=== PATIENT | female | born 1935 | race Asian ===

== ENCOUNTER 2020-01-04 00:40 | Emergency (ER) | payer OTHER ==
[~2020-01-04] VITALS: Ht 165.1 cm; Wt 81.8 kg
[~2020-01-04 00:40] MED LIST: ALEN70TA19 PO; AMLO1TAB36 PO; FAMO20TA8 PO; HYDR-3965 PO; LEVO5TAB13 PO; METF-960 PO; SIME125T62 PO; SIMV-43 PO
[2020-01-04 01:00] LABS: GLUCOMETER DEV NAME(LOC) AHU.; GLUCOSE,POINT OF CARE 135 MG/DL (70-110)
[2020-01-04] MEDS ORDERED: IOVERSOL 350 MG/ML 100 ML VIAL ONE (01:16)
[2020-01-04] MEDS ORDERED: SODIUM CHLORIDE 0.9% 100 ML ONE (01:16)
[2020-01-04 02:07] LABS: BASOPHILS % (AUTO) 0.3 % (0.0-2.0); EOSINOPHILS % (AUTO) 0.7 % (1.0-6.0); HEMOGLOBIN 12.1 g/dL (12.0-16.0); LYMPHOCYTES # (AUTO) 0.6 K/uL (1.0-4.8); LYMPHOCYTES % (AUTO) 6.1 % (22.0-44.0); MEAN CORPUSCULAR HEMOGLOBIN 29.1 pg (26.0-34.0); MEAN CORPUSCULAR HGB CONC 32.8 G/dL (31.0-37.0); MEAN CORPUSCULAR VOLUME 89 fL (80-100); MONOCYTES # (AUTO) 0.8 K/uL (0.1-1.0); MONOCYTES % (AUTO) 8.6 % (2.0-9.0); NEUTROPHILS # (AUTO) 8.2 K/uL (1.8-7.7); NEUTROPHILS % (AUTO) 84.3 % (40.0-70.0); PLATELET COUNT (AUTO) 224 K/uL (150-450); RED BLOOD CELL COUNT(AUTO) 4.16 MIL/uL (4.00-5.20); RED CELL DISTRIBUTION WIDTH 14.4 % (11.5-14.5)
[2020-01-04 02:15] LABS: PROTHROMBIN TIME 9.8 SEC (9.4-11.6)
[2020-01-04 02:26] LABS: ALBUMIN 3.3 g/dL (3.4-5.0); BILIRUBIN,TOTAL 0.5 mg/dL (0.1-1.0); CALCIUM, TOTAL 8.9 mg/dL (8.8-10.5); CREATININE 1.32 mg/dL (0.60-1.30); TOTAL PROTEIN, SERUM 7.1 g/dL (6.4-8.2)
[2020-01-04 02:30] LABS: POTASSIUM 3.1 mmol/L (3.5-5.1)
[2020-01-04 03:31] LABS: APPEARANCE,URINE CLEAR (CLEAR); BILIRUBIN,URINE NEGATIVE (NEGATIVE); GLUCOSE, URINE (UA) NEGATIVE (NEGATIVE); KETONES,URINE NEGATIVE (NEGATIVE); LEUKOCYTE ESTERASE ,URINE NEGATIVE (NEGATIVE); NITRATE,URINE NEGATIVE (NEGATIVE); OCCULT BLOOD,URINE NEGATIVE (NEGATIVE); PROTEIN,URINE NEGATIVE (NEGATIVE); UROBILINOGEN,URINE 0.2 mg/dL (<=1.0)
[2020-01-04 05:24] VITALS: BP 156/90
[2020-01-04 05:55] LABS: GLUCOSE,POINT OF CARE 131 MG/DL (70-110)
== END 2020-01-04 07:16 | disposition short-term general hospital (02) ==
LOC: EMS 00:41
DX: C34.90 Malignant neoplasm of unspecified part of unspecified bronchus or lung (principal); J90 Pleural effusion, not elsewhere classified; E86.9 Volume depletion, unspecified; E87.6 Hypokalemia
CPT/HCPCS: 36415; 71045; 71275; 80053; 81003; 82550; 82962; 83880; 84484; 85025; 85610; 85730; 93005; 99285; J7050; Q9967